=== PATIENT | female | born 1985 | race Caucasian/White ===

== ENCOUNTER → 2022-01-14 16:49 | Outpatient (CLI) | payer OTHER, SELFPAY ==
[2022-01-14 17:49] LABS: COVID19 -Nasal RAPID Negative (Negative)
== END ==
PROVIDERS: Visit Provider Student in an Organized Health Care Education/Training Program
DX: Z20.822 Contact with and (suspected) exposure to COVID-19 (principal)
CPT/HCPCS: 87635